=== PATIENT | female | born 1970 | race Caucasian/White ===

== ENCOUNTER 2019-06-20 21:59 | Emergency (ER) | payer MEDICAID ==
[2019-06-20] MEDS: ACETAMINOPHEN 500 MG TAB PO (23:49)
[2019-06-20 23:52] LABS: URINE BLOOD (Dip) POC Negative (NEGATIVE); URINE GLUCOSE (Dip) POC Negative (NEGATIVE); URINE KETONES (Dip) POC Negative (NEGATIVE); URINE LEUKOCYTE EST (Dip) POC Negative (NEGATIVE); URINE NITRITE (Dip) POC Negative (NEGATIVE); URINE TOTAL PROTEIN POC Negative (NEGATIVE)
== END 2019-06-21 01:16 | disposition home or self-care (01) ==
LOC: FTE 06-21 01:16
DX: R07.81 Pleurodynia (principal)
CPT/HCPCS: 71045; 71100; 81003; 99283-25